=== PATIENT | female | born 1995 | race Caucasian/White ===

== ENCOUNTER 2018-01-05 10:33 | Emergency (ER) | payer OTHER ==
[2018-01-05 11:23] LABS: URINE BLOOD (Dip) POC Negative (NEGATIVE); URINE KETONES (Dip) POC Negative (NEGATIVE); URINE LEUKOCYTE EST (Dip) POC 1+ (NEGATIVE); URINE NITRITE (Dip) POC Negative (NEGATIVE); URINE TOTAL PROTEIN POC Negative (NEGATIVE)
[2018-01-05] MEDS: SOD CHLORIDE 0.9% 1,000 ML IV ×2 (12:03→13:01)
[2018-01-05] MEDS: KETOROLAC 15 MG INJ IV (12:04)
[2018-01-05] MEDS: ONDANSETRON 4 MG INJ IV (12:04)
[2018-01-05 12:06] LABS: ADD MAN DIFF? NO
[2018-01-05 12:08] LABS: BASOPHILS % 0.4 % (0.0-2.0); EOSINOPHILS # 0.1 10^3/ul (0.0-0.5); EOSINOPHILS % 0.6 % (0.0-7.0); HEMATOCRIT 41.9 % (37.0-47.0); HEMOGLOBIN 14.3 g/dl (12.0-16.0); LYMPHOCYTES # 2.5 10^3/ul (0.8-2.9); LYMPHOCYTES % 30.8 % (15.0-51.0); MEAN CORPUSCULAR HEMOGLOBIN 27.4 pg (29.0-33.0); MEAN CORPUSCULAR HGB CONC 34.1 g/dl (32.0-37.0); MEAN CORPUSCULAR VOLUME 80.3 fl (82.0-101.0); MEAN PLATELET VOLUME 10.4 fl (7.4-10.4); MONOCYTE # 0.4 10^3/ul (0.3-0.9); NEUTROPHIL # 5.2 10^3/ul (1.6-7.5); NEUTROPHILS % 62.8 % (39.0-77.0); PLATELET COUNT 282 10^3/UL (140-415); RED BLOOD COUNT 5.22 10^6/ul (4.20-5.40); RED CELL DISTRIBUTION WIDTH 13.2 % (11.5-14.5)
[2018-01-05 12:08] LABS: WHITE BLOOD COUNT 8.3 10^3/ul (4.8-10.8)
[2018-01-05 12:23] LABS: ADD UMIC YES; UR ASCORBIC ACID NEGATIVE (NEGATIVE); UR BACTERIA FEW /HPF (NONE SEEN); UR BILIRUBIN (Dip) NEGATIVE (NEGATIVE); UR BLOOD (Dip) NEGATIVE (NEGATIVE); UR CLARITY CLEAR (CLEAR); UR COLOR STRAW (YELLOW); UR GLUCOSE (Dip) 3+ mg/dL (NEGATIVE); UR KETONES (Dip) NEGATIVE (NEGATIVE); UR LEUKOCYTE ESTERASE (Dip) 2+ Leu/ul (NEGATIVE); UR NITRITE (Dip) NEGATIVE (NEGATIVE); UR RBC 2 /HPF (0-5); UR SPECIFIC GRAVITY (Dip) 1.027 (1.003-1.030); UR TOTAL PROTEIN (Dip) NEGATIVE (NEGATIVE); UR UROBILINOGEN (Dip) NEGATIVE (NEGATIVE); UR WBC 7 /HPF (0-5)
[2018-01-05 12:25] LABS: ALANINE AMINOTRANSFERASE 40 IU/L (13-69); ALBUMIN 3.9 g/dl (3.3-4.9); ALBUMIN/GLOBULIN RATIO 1.14; ALKALINE PHOSPHATASE 144 IU/L (42-121); ANION GAP 14 (8-16); ASPARTATE AMINO TRANSFERASE 17 IU/L (15-46); BILIRUBIN,INDIRECT 0.2 mg/dl (0-1.1); BILIRUBIN,TOTAL 0.2 mg/dl (0.2-1.3); BLOOD UREA NITROGEN 9 mg/dl (7-20); CALCIUM 8.7 mg/dl (8.4-10.2); CARBON DIOXIDE 24 mmol/L (21-31); CHLORIDE 99 mmol/L (97-110); LIPASE 109 U/L (23-300); POTASSIUM 3.7 mmol/L (3.5-5.1); SODIUM 133 mmol/L (135-144); TOTAL PROTEIN 7.3 g/dl (6.1-8.1)
[2018-01-05 12:37] LABS: GLUCOSE 506 mg/dl (70-220)
[2018-01-05] MEDS ORDERED: GLUCAGON 1 MG INJ IM (13:30)
[2018-01-05] MEDS ORDERED: GLUCOSE GEL 15 GRAM TUBE BUCCAL (13:30)
[2018-01-05] MEDS ORDERED: GLUCOSE GEL 15 GRAM TUBE PO ×2 (13:30)
[2018-01-05] MEDS ORDERED: DEXTROSE 50% 50 ML SYRINGE IV ×2 (13:30)
[2018-01-05] MEDS: INSULIN LISPRO 100 UNIT/ML VIAL SC (13:38)
== END 2018-01-05 15:02 | disposition home or self-care (01) ==
LOC: FTE 10:33
DX: N12 Tubulo-interstitial nephritis, not specified as acute or chronic (principal); R73.9 Hyperglycemia, unspecified
CPT/HCPCS: 36415; 74176; 80053; 81001; 81003; 82962; 83690; 85025; 96372; 96374; 96375; 99285-25

== ENCOUNTER 2018-04-21 10:25 | Emergency (ER) | payer OTHER ==
[2018-04-21 11:27] LABS: ADD MAN DIFF? NO
[2018-04-21 11:31] LABS: BASOPHILS % 0.3 % (0.0-2.0); EOSINOPHILS % 0.3 % (0.0-7.0); HEMATOCRIT 43.5 % (37.0-47.0); HEMOGLOBIN 14.6 g/dl (12.0-16.0); LYMPHOCYTES # 2.4 10^3/ul (0.8-2.9); LYMPHOCYTES % 21.4 % (15.0-51.0); MEAN CORPUSCULAR HGB CONC 33.6 g/dl (32.0-37.0); MEAN CORPUSCULAR VOLUME 83.3 fl (82.0-101.0); MONOCYTE # 0.3 10^3/ul (0.3-0.9); NEUTROPHIL # 8.4 10^3/ul (1.6-7.5); NEUTROPHILS % 74.5 % (39.0-77.0); PLATELET COUNT 370 10^3/UL (140-415); RED BLOOD COUNT 5.22 10^6/ul (4.20-5.40); RED CELL DISTRIBUTION WIDTH 13.3 % (11.5-14.5)
[2018-04-21 11:31] LABS: WHITE BLOOD COUNT 11.3 10^3/ul (4.8-10.8)
[2018-04-21 11:33] LABS: ADD UMIC YES; UR ASCORBIC ACID NEGATIVE (NEGATIVE); UR BILIRUBIN (Dip) NEGATIVE (NEGATIVE); UR BLOOD (Dip) 2+ mg/dL (NEGATIVE); UR CLARITY SLIGHTLY CLOUDY (CLEAR); UR COLOR YELLOW (YELLOW); UR GLUCOSE (Dip) 3+ mg/dL (NEGATIVE); UR KETONES (Dip) NEGATIVE (NEGATIVE); UR LEUKOCYTE ESTERASE (Dip) NEGATIVE Leu/ul (NEGATIVE); UR NITRITE (Dip) NEGATIVE (NEGATIVE); UR RBC 1 /HPF (0-5); UR SPECIFIC GRAVITY (Dip) 1.033 (1.003-1.030); UR SQUAMOUS EPITHELIAL CELL FEW /HPF (FEW); UR TOTAL PROTEIN (Dip) 2+ mg/dl (NEGATIVE); UR UROBILINOGEN (Dip) NEGATIVE (NEGATIVE); UR WBC 4 /HPF (0-5)
== END 2018-04-21 12:45 | disposition home or self-care (01) ==
LOC: FTE 10:25
DX: O20.9 Hemorrhage in early pregnancy, unspecified (principal); R10.2 Pelvic and perineal pain; Z3A.09 9 weeks gestation of pregnancy
CPT/HCPCS: 36415; 76801; 81001; 84702; 85025; 86900; 86901; 99284-25

== ENCOUNTER 2018-05-06 22:41 | Emergency (ER) | payer OTHER ==
[2018-05-07 00:33] LABS: ADD MAN DIFF? NO
[2018-05-07 00:36] LABS: BASOPHILS % 0.3 % (0.0-2.0); EOSINOPHILS # 0.1 10^3/ul (0.0-0.5); EOSINOPHILS % 0.9 % (0.0-7.0); HEMATOCRIT 40.4 % (37.0-47.0); HEMOGLOBIN 13.4 g/dl (12.0-16.0); LYMPHOCYTES # 3.3 10^3/ul (0.8-2.9); LYMPHOCYTES % 31.1 % (15.0-51.0); MEAN CORPUSCULAR HEMOGLOBIN 27.5 pg (29.0-33.0); MEAN CORPUSCULAR HGB CONC 33.2 g/dl (32.0-37.0); MEAN PLATELET VOLUME 9.3 fl (7.4-10.4); MONOCYTE # 0.5 10^3/ul (0.3-0.9); MONOCYTES % 4.7 % (0.0-11.0); NEUTROPHIL # 6.7 10^3/ul (1.6-7.5); NEUTROPHILS % 62.5 % (39.0-77.0); PLATELET COUNT 360 10^3/UL (140-415); RED BLOOD COUNT 4.87 10^6/ul (4.20-5.40); RED CELL DISTRIBUTION WIDTH 13.1 % (11.5-14.5)
[2018-05-07 00:36] LABS: WHITE BLOOD COUNT 10.7 10^3/ul (4.8-10.8)
[2018-05-07] MEDS: ACETAMINOPHEN 500 MG TAB PO (00:51)
[2018-05-07 00:57] LABS: ANION GAP 12 (8-16); BLOOD UREA NITROGEN 15 mg/dl (7-20); CALCIUM 9.7 mg/dl (8.4-10.2); CARBON DIOXIDE 25 mmol/L (21-31); CHLORIDE 106 mmol/L (97-110); CREATININE 0.59 mg/dl (0.44-1.00); GLUCOSE 99 mg/dl (70-220); POTASSIUM 3.7 mmol/L (3.5-5.1); SODIUM 139 mmol/L (135-144)
[2018-05-07] MEDS: FLUORESCEIN STRIP LEFT EYE (02:56)
== END 2018-05-07 05:39 | disposition home or self-care (01) ==
LOC: E/R 05-07 05:39
DX: O99.511 Diseases of the respiratory system complicating pregnancy, first trimester (principal); B00.1 Herpesviral vesicular dermatitis; O98.511 Other viral diseases complicating pregnancy, first trimester; J06.9 Acute upper respiratory infection, unspecified; Z3A.12 12 weeks gestation of pregnancy
CPT/HCPCS: 80048; 85025; 99283

== ENCOUNTER 2018-06-30 07:20 | Emergency (ER) | payer OTHER ==
[2018-06-30] MEDS: LIDOCAINE 1% (MDV) 10 ML INJ INJ (08:08)
[2018-06-30] MEDS: ACETAMINOPHEN 500 MG TAB PO (08:56)
== END 2018-06-30 09:35 | disposition home or self-care (01) ==
LOC: FTE 07:20
DX: O99.89 Other specified diseases and conditions complicating pregnancy, childbirth and the puerperium (principal); M62.830 Muscle spasm of back; R40.2412 Glasgow coma scale score 13-15, at arrival to emergency department; Z3A.19 19 weeks gestation of pregnancy
CPT/HCPCS: 20552; 76805; 81025; 99284-25

== ENCOUNTER 2018-09-21 20:37 | Inpatient (IN) | payer OTHER ==
[2018-09-21 21:48] LABS: ADD MAN DIFF? NO
[2018-09-21 21:54] LABS: BASOPHILS % 0.2 % (0.0-2.0); EOSINOPHILS % 0.1 % (0.0-7.0); HEMOGLOBIN 12.2 g/dl (12.0-16.0); LYMPHOCYTES # 2.4 10^3/ul (0.8-2.9); LYMPHOCYTES % 28.1 % (15.0-51.0); MEAN CORPUSCULAR HEMOGLOBIN 28.8 pg (29.0-33.0); MEAN CORPUSCULAR HGB CONC 34.9 g/dl (32.0-37.0); MEAN CORPUSCULAR VOLUME 82.5 fl (82.0-101.0); MEAN PLATELET VOLUME 11.5 fl (7.4-10.4); MONOCYTE # 0.3 10^3/ul (0.3-0.9); NEUTROPHIL # 5.8 10^3/ul (1.6-7.5); NEUTROPHILS % 68.2 % (39.0-77.0); PLATELET COUNT 252 10^3/UL (140-415); RED BLOOD COUNT 4.24 10^6/ul (4.20-5.40); RED CELL DISTRIBUTION WIDTH 13.4 % (11.5-14.5)
[2018-09-21 21:54] LABS: WHITE BLOOD COUNT 8.4 10^3/ul (4.8-10.8)
[2018-09-21 21:57] LABS: ADD UMIC YES; UR ASCORBIC ACID NEGATIVE (NEGATIVE); UR BACTERIA FEW /HPF (NONE SEEN); UR BILIRUBIN (Dip) NEGATIVE (NEGATIVE); UR BLOOD (Dip) NEGATIVE (NEGATIVE); UR CLARITY SLIGHTLY CLOUDY (CLEAR); UR COLOR STRAW (YELLOW); UR GLUCOSE (Dip) 3+ mg/dL (NEGATIVE); UR KETONES (Dip) NEGATIVE (NEGATIVE); UR LEUKOCYTE ESTERASE (Dip) 1+ Leu/ul (NEGATIVE); UR NITRITE (Dip) NEGATIVE (NEGATIVE); UR RBC 3 /HPF (0-5); UR SPECIFIC GRAVITY (Dip) 1.033 (1.003-1.030); UR SQUAMOUS EPITHELIAL CELL FEW /HPF (FEW); UR TOTAL PROTEIN (Dip) 1+ mg/dl (NEGATIVE); UR UROBILINOGEN (Dip) NEGATIVE (NEGATIVE); UR WBC 7 /HPF (0-5)
[2018-09-21 22:12] LABS: ALANINE AMINOTRANSFERASE 6 IU/L (13-69); ALBUMIN/GLOBULIN RATIO 1.07; ALKALINE PHOSPHATASE 85 IU/L (42-121); ANION GAP 10 (5-13); ASPARTATE AMINO TRANSFERASE 9 IU/L (15-46); BLOOD UREA NITROGEN 12 mg/dl (7-20); CALCIUM 8.8 mg/dl (8.4-10.2); CARBON DIOXIDE 21 mmol/L (21-31); CHLORIDE 100 mmol/L (97-110); CREATININE 0.83 mg/dl (0.44-1.00); Estimated GFR > 60 mL/min (>60); GLUCOSE 374 mg/dl (70-220); POTASSIUM 3.9 mmol/L (3.5-5.1); SODIUM 131 mmol/L (135-144); TOTAL PROTEIN 5.8 g/dl (6.1-8.1); URIC ACID 4.7 mg/dl (3.1-7.9)
[2018-09-21] MEDS ORDERED: AL HYDROX/MG HYDROX/SIMETH 30 ML CUP PO (23:00)
[2018-09-21] MEDS ORDERED: GLUCAGON 1 MG INJ IM (23:30)
[2018-09-21] MEDS ORDERED: GLUCOSE GEL 15 GRAM TUBE PO ×2 (23:30)
[2018-09-21] MEDS ORDERED: DEXTROSE 50% 50 ML SYRINGE IV ×2 (23:30)
[2018-09-21] MEDS ORDERED: GLUCOSE GEL 15 GRAM TUBE BUCCAL (23:30)
[2018-09-22] MEDS: INSULIN ISOPHANE (NPH) 10 ML INJ SC ×3 (00:42→20:55)
[2018-09-22] MEDS: ACCU-CHEK XX ×4 (08:53→19:53)
[2018-09-22] MEDS: INSULIN ASPART [NOVOLOG] 3 ML PEN SC ×6 (09:18→21:00)
[2018-09-22] MEDS: PRENATAL VITAMIN PO (09:27)
[2018-09-22] MEDS: ASPIRIN (EC) 81 MG TAB PO (09:27)
[2018-09-22] MEDS ORDERED: ACETAMINOPHEN 325 MG TAB PO (09:30)
[2018-09-22 09:35] LABS: HEMOGLOBIN A1C 13.8 % (0-5.9)
[2018-09-22] MEDS: ACETAMINOPHEN 325 MG TAB PO (09:36)
[2018-09-22] MEDS: GUAIFENESIN/DM 5ML CUP PO (09:36)
[2018-09-22] MEDS: CIPROFLOXACIN 500 MG TAB GTB (17:41)
[2018-09-22] MEDS ORDERED: CIPROFLOXACIN 500 MG TAB PO (18:00)
[2018-09-22] MEDS ORDERED: INSULIN ASPART [NOVOLOG] 3 ML PEN SC (18:05)
[2018-09-23 02:34] LABS: COLLECTION PERIOD 24 hrs; CREATININE CLEARANCE 96.9 mls/min (84.0-162.0); CREATININE,URINE RANDOM 121.95 mg/dl (20-320); SCRET 0.83 mg/dl (0.44-1.00); VOLUME 950 ml/24hrs
[2018-09-23 02:38] LABS: VOLUME 950 mls
[2018-09-23 02:39] LABS: COLLECTION PERIOD 24 hrs
[2018-09-23] MEDS: CIPROFLOXACIN 500 MG TAB GTB ×2 (06:10→17:49)
[2018-09-23] MEDS: INSULIN ASPART [NOVOLOG] 3 ML PEN SC ×6 (09:00→22:11)
[2018-09-23] MEDS: ASPIRIN (EC) 81 MG TAB PO (09:21)
[2018-09-23] MEDS: PRENATAL VITAMIN PO (09:21)
[2018-09-23] MEDS: INSULIN ISOPHANE (NPH) 10 ML INJ SC (09:30)
[2018-09-23] MEDS: ACCU-CHEK XX ×4 (11:40→20:46)
[2018-09-23] MEDS: LACTATED RINGER'S 1,000 ML IV (14:03)
[2018-09-23] MEDS: NPH, HUMAN INSULIN ISOPHANE 3ML VIAL SC (22:10)
[2018-09-24] MEDS: LACTATED RINGER'S 1,000 ML IV ×2 (02:10→16:44)
[2018-09-24] MEDS: CIPROFLOXACIN 500 MG TAB GTB ×2 (06:01→17:58)
[2018-09-24] MEDS: INSULIN ASPART [NOVOLOG] 3 ML PEN SC ×6 (09:14→21:00)
[2018-09-24] MEDS: ACCU-CHEK XX ×4 (09:14→20:21)
[2018-09-24] MEDS: ASPIRIN (EC) 81 MG TAB PO (09:17)
[2018-09-24] MEDS: PRENATAL VITAMIN PO (09:17)
[2018-09-24] MEDS: NPH, HUMAN INSULIN ISOPHANE 3ML VIAL SC ×2 (09:37→21:53)
[2018-09-25] MEDS: CIPROFLOXACIN 500 MG TAB GTB (05:45)
[2018-09-25] MEDS: LACTATED RINGER'S 1,000 ML IV (05:46)
[2018-09-25] MEDS: ACCU-CHEK XX (08:49)
[2018-09-25] MEDS: PRENATAL VITAMIN PO (08:52)
[2018-09-25] MEDS: ASPIRIN (EC) 81 MG TAB PO (08:52)
[2018-09-25] MEDS: NPH, HUMAN INSULIN ISOPHANE 3ML VIAL SC (08:55)
[2018-09-25] MEDS: INSULIN ASPART [NOVOLOG] 3 ML PEN SC (08:56)
== END 2018-09-25 09:55 | disposition home or self-care (01) | DRG 833 ==
LOC: OBT 20:37 → L-D 20:38 → OBT 22:20 → PP1 22:30
DX: O24.913 Unspecified diabetes mellitus in pregnancy, third trimester (principal); O13.3 Gestational [pregnancy-induced] hypertension without significant proteinuria, third trimester; Z3A.31 31 weeks gestation of pregnancy
CPT/HCPCS: 36415; 76815; 76818; 80053; 81001; 82575; 82962; 83036; 84156; 84560; 85025; 87086

== ENCOUNTER 2018-09-28 12:23 | Outpatient (CLI) | payer OTHER | END 2018-09-28 14:10 | disposition home or self-care (01) | LOC: OBT 12:23 → L-D 12:25 → OBT 14:10 | DX: O24.414 Gestational diabetes mellitus in pregnancy, insulin controlled (principal); Z3A.32 32 weeks gestation of pregnancy; Z79.4 Long term (current) use of insulin | CPT/HCPCS: Z7500 ==

== ENCOUNTER 2018-10-10 12:06 | Outpatient (CLI) | payer OTHER ==
[2018-10-10 13:19] LABS: ADD MAN DIFF? NO
[2018-10-10 13:22] LABS: WHITE BLOOD COUNT 9.9 10^3/ul (4.8-10.8)
[2018-10-10 13:22] LABS: BASOPHILS % 0.2 % (0.0-2.0); EOSINOPHILS % 0.1 % (0.0-7.0); HEMATOCRIT 38.2 % (37.0-47.0); HEMOGLOBIN 12.5 g/dl (12.0-16.0); LYMPHOCYTES # 2.2 10^3/ul (0.8-2.9); LYMPHOCYTES % 22.2 % (15.0-51.0); MEAN CORPUSCULAR HEMOGLOBIN 27.8 pg (29.0-33.0); MEAN CORPUSCULAR HGB CONC 32.7 g/dl (32.0-37.0); MEAN CORPUSCULAR VOLUME 85.1 fl (82.0-101.0); MEAN PLATELET VOLUME 10.6 fl (7.4-10.4); MONOCYTE # 0.3 10^3/ul (0.3-0.9); MONOCYTES % 2.5 % (0.0-11.0); NEUTROPHIL # 7.4 10^3/ul (1.6-7.5); NEUTROPHILS % 74.6 % (39.0-77.0); PLATELET COUNT 321 10^3/UL (140-415); RED BLOOD COUNT 4.49 10^6/ul (4.20-5.40); RED CELL DISTRIBUTION WIDTH 13.5 % (11.5-14.5)
[2018-10-10 13:40] LABS: ALBUMIN 3.3 g/dl (3.3-4.9); ALBUMIN/GLOBULIN RATIO 1.03; ALKALINE PHOSPHATASE 97 IU/L (42-121); ANION GAP 7 (5-13); ASPARTATE AMINO TRANSFERASE 9 IU/L (15-46); BILIRUBIN,INDIRECT 0.1 mg/dl (0-1.1); BILIRUBIN,TOTAL 0.1 mg/dl (0.2-1.3); BLOOD UREA NITROGEN 11 mg/dl (7-20); CALCIUM 9.2 mg/dl (8.4-10.2); CARBON DIOXIDE 24 mmol/L (21-31); CHLORIDE 106 mmol/L (97-110); CREATININE 0.63 mg/dl (0.44-1.00); Estimated GFR > 60 mL/min (>60); GLUCOSE 98 mg/dl (70-220); POTASSIUM 4.2 mmol/L (3.5-5.1); SODIUM 137 mmol/L (135-144); TOTAL PROTEIN 6.5 g/dl (6.1-8.1)
[2018-10-10 13:42] LABS: ALANINE AMINOTRANSFERASE < 6 IU/L (13-69)
[2018-10-10 13:44] LABS: ADD UMIC YES; UR ASCORBIC ACID NEGATIVE (NEGATIVE); UR BILIRUBIN (Dip) NEGATIVE (NEGATIVE); UR BLOOD (Dip) 1+ mg/dL (NEGATIVE); UR CLARITY SLIGHTLY CLOUDY (CLEAR); UR COLOR YELLOW (YELLOW); UR GLUCOSE (Dip) 3+ mg/dL (NEGATIVE); UR KETONES (Dip) NEGATIVE (NEGATIVE); UR LEUKOCYTE ESTERASE (Dip) 1+ Leu/ul (NEGATIVE); UR MUCUS FEW /HPF (NONE SEEN); UR NITRITE (Dip) NEGATIVE (NEGATIVE); UR RBC 2 /HPF (0-5); UR SPECIFIC GRAVITY (Dip) 1.013 (1.003-1.030); UR SQUAMOUS EPITHELIAL CELL FEW /HPF (FEW); UR TOTAL PROTEIN (Dip) 1+ mg/dl (NEGATIVE); UR UROBILINOGEN (Dip) NEGATIVE (NEGATIVE); UR WBC 3 /HPF (0-5)
== END 2018-10-10 16:30 | disposition home or self-care (01) ==
LOC: OBT 12:06 → L-D 12:06 → OBT 16:30
DX: O26.893 Other specified pregnancy related conditions, third trimester (principal); O24.414 Gestational diabetes mellitus in pregnancy, insulin controlled; O13.3 Gestational [pregnancy-induced] hypertension without significant proteinuria, third trimester; Z3A.34 34 weeks gestation of pregnancy; Z79.4 Long term (current) use of insulin
CPT/HCPCS: 76818; 80053; 81001; 85025

== ENCOUNTER 2018-10-30 10:56 | Inpatient (IN) | payer OTHER ==
[2018-10-30] MEDS ORDERED: BUTORPHANOL 2 MG INJ IV (11:30)
[2018-10-30] MEDS ORDERED: CARBOPROST 250 MCG INJ IM (11:30)
[2018-10-30] MEDS ORDERED: IBUPROFEN 600 MG TAB PO (11:30)
[2018-10-30] MEDS ORDERED: LIDOCAINE 1% (MPF) 30 ML INJ INJ (11:30)
[2018-10-30] MEDS ORDERED: OXYTOCIN 30 UNITS/LR 500 ML IV ×2 (11:30)
[2018-10-30] MEDS ORDERED: METHYLERGONOVINE 0.2 MG INJ IM (11:30)
[2018-10-30] MEDS ORDERED: MISOPROSTOL 200 MCG TAB PR (11:30)
[2018-10-30] MEDS ORDERED: LACTATED RINGER'S 1,000 ML IV (11:33)
[2018-10-30 11:56] LABS: ADD MAN DIFF? NO
[2018-10-30 11:59] LABS: WHITE BLOOD COUNT 9.9 10^3/ul (4.8-10.8)
[2018-10-30 11:59] LABS: BASOPHILS % 0.2 % (0.0-2.0); EOSINOPHILS % 0.1 % (0.0-7.0); HEMATOCRIT 39.1 % (37.0-47.0); HEMOGLOBIN 12.8 g/dl (12.0-16.0); LYMPHOCYTES # 2.1 10^3/ul (0.8-2.9); LYMPHOCYTES % 20.8 % (15.0-51.0); MEAN CORPUSCULAR HEMOGLOBIN 27.4 pg (29.0-33.0); MEAN CORPUSCULAR HGB CONC 32.7 g/dl (32.0-37.0); MEAN CORPUSCULAR VOLUME 83.7 fl (82.0-101.0); MEAN PLATELET VOLUME 11.3 fl (7.4-10.4); MONOCYTE # 0.2 10^3/ul (0.3-0.9); MONOCYTES % 2.3 % (0.0-11.0); NEUTROPHIL # 7.6 10^3/ul (1.6-7.5); NEUTROPHILS % 76.2 % (39.0-77.0); PLATELET COUNT 309 10^3/UL (140-415); RED BLOOD COUNT 4.67 10^6/ul (4.20-5.40); RED CELL DISTRIBUTION WIDTH 13.2 % (11.5-14.5)
[2018-10-30 12:07] LABS: ADD UMIC YES; UR ASCORBIC ACID NEGATIVE (NEGATIVE); UR BACTERIA FEW /HPF (NONE SEEN); UR BILIRUBIN (Dip) NEGATIVE (NEGATIVE); UR BLOOD (Dip) NEGATIVE (NEGATIVE); UR CLARITY SLIGHTLY CLOUDY (CLEAR); UR COLOR YELLOW (YELLOW); UR GLUCOSE (Dip) 3+ mg/dL (NEGATIVE); UR KETONES (Dip) NEGATIVE (NEGATIVE); UR LEUKOCYTE ESTERASE (Dip) 1+ Leu/ul (NEGATIVE); UR NITRITE (Dip) NEGATIVE (NEGATIVE); UR RBC 2 /HPF (0-5); UR SPECIFIC GRAVITY (Dip) 1.024 (1.003-1.030); UR SQUAMOUS EPITHELIAL CELL FEW /HPF (FEW); UR TOTAL PROTEIN (Dip) 3+ mg/dl (NEGATIVE); UR UROBILINOGEN (Dip) NEGATIVE (NEGATIVE); UR WBC 7 /HPF (0-5)
[2018-10-30 12:19] LABS: INR 0.87; PROTIME 11.9 Sec (11.9-14.9); PT RATIO 0.9
[2018-10-30 12:20] LABS: PARTIAL THROMBOPLASTIN TIME 28.3 Sec (23.0-35.0)
[2018-10-30 12:54] LABS: HEPATITIS B SURFACE ANTIGEN NEGATIVE (NEGATIVE)
[2018-10-30] MEDS: AMPICILLIN 2 GM/NS (PMX) 100 ML IV (13:16)
[2018-10-30] MEDS: LACTATED RINGER'S 1,000 ML IV ×2 (13:17→18:29)
[2018-10-30] MEDS: OXYTOCIN 30 UNITS/LR 500 ML IV (13:21)
[2018-10-30 14:25] LABS: GLUCOSE 185 mg/dl (70-220)
[2018-10-30 14:26] LABS: URIC ACID 5.7 mg/dl (3.1-7.9)
[2018-10-30] MEDS: AMPICILLIN 1 GM/NS (PMX) 50 ML IV ×2 (17:04→21:07)
[2018-10-30] MEDS: MISOPROSTOL 50 MCG CAPSULE VAG ×2 (18:26→22:53)
[2018-10-30] MEDS: INSULIN REGULAR, HUMAN 100 UNIT/1 ML 3ML VIAL SC (20:01)
[2018-10-30 22:27] LABS: RAPID PLASMA REAGIN NONREACTIVE (NR)
[2018-10-30] MEDS: NPH, HUMAN INSULIN ISOPHANE 3ML VIAL SC (22:31)
[2018-10-31] MEDS: AMPICILLIN 1 GM/NS (PMX) 50 ML IV ×6 (01:21→20:05)
[2018-10-31] MEDS: MISOPROSTOL 50 MCG CAPSULE VAG ×4 (03:28→20:00)
[2018-10-31] MEDS: LACTATED RINGER'S 1,000 ML IV ×3 (03:52→16:45)
[2018-10-31] MEDS ORDERED: NALOXONE (0.4 MG/ML) INJ IV (08:30)
[2018-10-31] MEDS: ASPIRIN 81 MG TAB PO (09:00)
[2018-10-31] MEDS: ONDANSETRON 4 MG INJ IV (10:57)
[2018-10-31] MEDS: DEXTROSE 5%-LR 1,000 ML IV (13:00)
[2018-10-31] MEDS ORDERED: INSULIN ASPART [NOVOLOG] 3 ML PEN SC (13:00)
[2018-10-31] MEDS: DIPHENHYDRAMINE 50 MG INJ IV (16:00)
[2018-10-31] MEDS: OXYTOCIN 30 UNITS/LR 500 ML IV ×2 (16:43→21:56)
[2018-10-31] MEDS ORDERED: INSULIN REGULAR, HUMAN 100 UNIT/1 ML 3ML VIAL SC (17:05)
[2018-10-31] MEDS: FENTAnyl 2MCG/ML-ROPIV 0.2% 100 ML BAG EPI (17:30)
[2018-10-31] MEDS: NPH, HUMAN INSULIN ISOPHANE 3ML VIAL SC (19:58)
[2018-10-31] MEDS: INSULIN REGULAR, HUMAN 100 UNIT/1 ML 3ML VIAL SC ×2 (19:59→20:00)
[2018-10-31] MEDS ORDERED: LIDOCAINE 1% (MPF) 30 ML INJ (21:22)
[2018-10-31] MEDS: ACETAMINOPHEN 1000MG/100ML IV 100 ML IVPB (22:00)
[2018-10-31] MEDS: MINERAL OIL LIGHT 10 ML VIAL TOP (23:00)
[2018-11-01] MEDS ORDERED: DIBUCAINE 1% 30 GM OINT TOP (00:30)
[2018-11-01] MEDS ORDERED: GLUCOSE GEL 15 GRAM TUBE PO ×2 (00:30)
[2018-11-01] MEDS ORDERED: HYDROCODONE/APAP (5/325) TAB PO ×2 (00:30)
[2018-11-01] MEDS ORDERED: GLUCAGON 1 MG INJ IM (00:30)
[2018-11-01] MEDS ORDERED: DEXTROSE 50% 50 ML SYRINGE IV ×2 (00:30)
[2018-11-01] MEDS ORDERED: ZOLPIDEM 5 MG TAB PO (00:30)
[2018-11-01] MEDS ORDERED: METHYLERGONOVINE 0.2 MG INJ IM (00:30)
[2018-11-01] MEDS ORDERED: CARBOPROST 250 MCG INJ IM (00:30)
[2018-11-01] MEDS ORDERED: LANOLIN HPA 1 PKT TOP (00:30)
[2018-11-01] MEDS ORDERED: OXYTOCIN 30 UNITS/LR 500 ML IV (00:30)
[2018-11-01] MEDS ORDERED: MISOPROSTOL 200 MCG TAB PR (00:30)
[2018-11-01] MEDS ORDERED: GLUCOSE GEL 15 GRAM TUBE BUCCAL (00:30)
[2018-11-01] MEDS: WITCH HAZEL/GLYCERIN PAD PR (01:06)
[2018-11-01] MEDS: BENZOCAINE 20% 56 ML SPRAY TOP (01:07)
[2018-11-01] MEDS: ACETAMINOPHEN 1000MG/100ML IV 100 ML IVPB (01:08)
[2018-11-01] MEDS ORDERED: ACCU-CHEK XX (02:00)
[2018-11-01] MEDS: IBUPROFEN 600 MG TAB PO ×4 (05:39→23:37)
[2018-11-01] MEDS: CIPROFLOXACIN 500 MG TAB PO ×2 (05:39→18:42)
[2018-11-01] MEDS: LACTATED RINGER'S 1,000 ML IV* (05:41)
[2018-11-01] MEDS: ACCU-CHEK XX ×4 (06:00→15:30)
[2018-11-01 08:29] LABS: ADD MAN DIFF? NO
[2018-11-01 08:35] LABS: WHITE BLOOD COUNT 19.4 10^3/ul (4.8-10.8)
[2018-11-01 08:35] LABS: BASOPHILS % 0.2 % (0.0-2.0); EOSINOPHILS % 0.1 % (0.0-7.0); HEMOGLOBIN 11.2 g/dl (12.0-16.0); LYMPHOCYTES # 3.2 10^3/ul (0.8-2.9); LYMPHOCYTES % 16.6 % (15.0-51.0); MEAN CORPUSCULAR HEMOGLOBIN 27.5 pg (29.0-33.0); MEAN CORPUSCULAR VOLUME 85.8 fl (82.0-101.0); MEAN PLATELET VOLUME 11.6 fl (7.4-10.4); MONOCYTE # 0.7 10^3/ul (0.3-0.9); MONOCYTES % 3.8 % (0.0-11.0); NEUTROPHIL # 15.3 10^3/ul (1.6-7.5); NEUTROPHILS % 78.8 % (39.0-77.0); PLATELET COUNT 212 10^3/UL (140-415); RED BLOOD COUNT 4.08 10^6/ul (4.20-5.40); RED CELL DISTRIBUTION WIDTH 13.5 % (11.5-14.5)
[2018-11-01] MEDS: MAGNESIUM HYDROXIDE 30ML CUP PO ×2 (08:51→23:36)
[2018-11-01] MEDS: metFORMIN 500 MG TAB PO (08:52)
[2018-11-01] MEDS: SENNA/DOCUSATE NA (8.6MG/50MG) TAB PO ×2 (08:52→23:36)
[2018-11-01] MEDS: metFORMIN (XR) 500 MG TAB PO (19:02)
[2018-11-02] MEDS: IBUPROFEN 600 MG TAB PO ×2 (05:30→13:05)
[2018-11-02] MEDS: CIPROFLOXACIN 500 MG TAB PO (05:34)
[2018-11-02 08:03] LABS: ADD MAN DIFF? NO
[2018-11-02 08:07] LABS: WHITE BLOOD COUNT 12.5 10^3/ul (4.8-10.8)
[2018-11-02 08:07] LABS: BASOPHILS % 0.3 % (0.0-2.0); EOSINOPHILS # 0.1 10^3/ul (0.0-0.5); EOSINOPHILS % 0.4 % (0.0-7.0); HEMATOCRIT 39.3 % (37.0-47.0); HEMOGLOBIN 12.5 g/dl (12.0-16.0); LYMPHOCYTES # 2.5 10^3/ul (0.8-2.9); MEAN CORPUSCULAR HEMOGLOBIN 27.7 pg (29.0-33.0); MEAN CORPUSCULAR HGB CONC 31.8 g/dl (32.0-37.0); MEAN CORPUSCULAR VOLUME 86.9 fl (82.0-101.0); MEAN PLATELET VOLUME 10.9 fl (7.4-10.4); MONOCYTE # 0.3 10^3/ul (0.3-0.9); MONOCYTES % 2.6 % (0.0-11.0); NEUTROPHIL # 9.5 10^3/ul (1.6-7.5); NEUTROPHILS % 76.4 % (39.0-77.0); PLATELET COUNT 228 10^3/UL (140-415); RED BLOOD COUNT 4.52 10^6/ul (4.20-5.40); RED CELL DISTRIBUTION WIDTH 13.8 % (11.5-14.5)
[2018-11-02] MEDS: metFORMIN (XR) 500 MG TAB PO (08:08)
[2018-11-02] MEDS: VARICELLA VACCINE LIVE/PF 1,350 UNIT/0.5 ML ML SC* (09:00)
[2018-11-02] MEDS: DIPHTH/TET/ACEL PERTUSS (ADULT) 0.5 ML VIAL IM* (09:00)
[2018-11-02] MEDS: MEASLES,MUMPS,RUBELLA VACCINE INJ SC* (09:00)
== END 2018-11-02 14:40 | disposition home or self-care (01) | DRG 807 ==
LOC: L-D 10:56 → PP1 10-31 23:12
PROVIDERS: Obstetrics & Gynecology
PROC: 10E0XZZ Delivery of Products of Conception, External Approach (ICD-10-PCS; principal; 2018-10-31)
PROC: 0HQ9XZZ Repair Perineum Skin, External Approach (ICD-10-PCS; 2018-10-31)
PROC: 3E033VJ Introduction of Other Hormone into Peripheral Vein, Percutaneous Approach (ICD-10-PCS; 2018-10-31)
DX: O99.89 Other specified diseases and conditions complicating pregnancy, childbirth and the puerperium (principal); Z37.0 Single live birth; R73.03 Prediabetes; O70.0 First degree perineal laceration during delivery; Z3A.37 37 weeks gestation of pregnancy
CPT/HCPCS: 62319; 76815; 81001; 82947; 82962; 84560; 85025; 85610; 85730; 86592; 86850; 86900; 86901; 87086; 87340; 90716; 99464

== ENCOUNTER 2019-02-19 17:47 | Emergency (ER) | payer OTHER ==
[2019-02-19] MEDS: IBUPROFEN 600 MG TAB PO (20:01)
[2019-02-19] MEDS: OXYCODONE/ACETAMINOPHEN (5/325) TAB PO (20:13)
== END 2019-02-19 20:36 | disposition home or self-care (01) ==
LOC: FTE 17:47
DX: K08.89 Other specified disorders of teeth and supporting structures (principal); Z79.84 Long term (current) use of oral hypoglycemic drugs
CPT/HCPCS: 81025; 99283